=== PATIENT | female | born 1980 | race Hispanic/Latino ===

== ENCOUNTER 2016-12-26 17:53 | Inpatient (IN) | payer OTHER ==
[~2016-12-26] VITALS: Ht 154.9 cm; Wt 81.9 kg
[~2016-12-26 17:53] MED LIST: CHOL500011 PO; IBUP800T28 PO; [UNRECOGNIZED DRUG - CODE] PO
[2016-12-26 18:02] VITALS: BP 114/76; PULSE 124; RESP 16; O2SAT 96
--- NOTE | 2016-12-26 19:23 | DRSVH ---
PROCEDURE: X-RAY CHEST, TWO VIEWS ([id number]) INDICATIONS: FEVER, POSSIBLE SEPSIS TECHNIQUE: 2 views of the chest were acquired. COMPARISON: None. FINDINGS: Surgical changes and devices: None. Lungs and pleura: No pleural effusions or pneumothorax. Lungs are clear. Mediastinum: Mediastinal contours are normal. Heart size is normal. Bones and chest wall: No suspicious bony abnormalities. Soft tissues appear unremarkable. IMPRESSION: Mildly reduced inspiratory volume, no acute disease. Dictated by: Marshall Raymond M.D. on 12/26/2016 at 19:21 Approved by: Marshall Raymond M.D. on 12/26/2016 at 19:21
[2016-12-26 19:59] LABS: BASOPHILS % (AUTO) 0.2 % (0-3); EOSINOPHILS % (AUTO) 0.1 % (0-5)
[2016-12-26] MEDS ORDERED: Ondansetron 2 mg/mL 2 mL Inj IVPUSH ONE (20:00)
--- NOTE | 2016-12-26 20:04 | ED.REPORT ---
HPI-General Illness Date of Service Dec 26, 2016 ED Provider: Arben Jimenez MD Patient is a 36 year old female who presents to the ED complaining of abdominal pain onset 3 days ago. Associated symptoms include pain that radiates into her back, headache, fever, chills, nausea and a slight cough. She denies dysuria, neck stiffness, shortness of breath, rash, vomiting, diarrhea, abnormal vaginal discharge or history of sexually transmitted disease. The patient reports that she has tried using ibuprofen, which has helped some with her chills but has not resolved them. She denies contact with meningitis or recent travel. Patient reports that her daughter recently came back from [place] two weeks ago and was sick. The patient reports that she last drank two days ago and had four drinks. Nursing Notes Stated Complaint: ABD PAIN,CHILLS,BACK PAIN Chief Complaint: General Complaint Nursing Notes Reviewed: Yes Allergies: Coded Allergies: No Known Allergies (Verified , 12/26/16) Scheduled PRN Ibuprofen (Ibuprofen) 200 Mg Capsule 400 MG PO Q6H PRN PRN For Pain Sumatriptan (Imitrex) 25 Mg Tablet 50 MG PO ASDIRECTED PRN PRN For Headache General Time Seen by MD: 19:28 Chief Complaint Abdominal pain Hx Obtained From: Patient Arrived By: Walk-in Sudden in Onset?: Yes Onset Occurred: 3 days ago Symptom Duration: Since onset Location: : Abdomen: Back: Head Quality: Painful Severity: Current: Moderate Similar Sx Previous: No Past Medical History Past Medical History none reported Past Surgical History Reports: Ambulatory Status Independent Review of Systems Full Review of Systems Constitutional: Reports: Chills, Fever Respiratory: Reports: Non-productive cough, Denies: Shortness of breath GI: Reports: Abdominal pain, Nausea, Denies: Diarrhea, Vomiting Female: Denies: Dysuria, , Vaginal discharge Musculoskeletal: Reports: Back pain, Denies: Neck pain Skin: Denies Rash Neurologic: Reports: Headache Complete sys rev & neg: except as marked. Physical Exam Vital Signs Vital Signs Date Time Temp Pulse Resp B/P Pulse Ox O2 Delivery O2 Flow Rate FiO2 12/26/16 21:51 38.1 113 20 112/66 96 Room Air 12/26/16 18:02 37.3 124 16 114/76 96 Room Air Initial VS: Reviewed General/Constitutional: Awake, Alert Head / Eyes: Atraumatic, Normocephalic, PERRL, EOMI ENT: Atraumatic, Airway patent, Mucous membranes moist, Pharynx NL Neck: Atraumatic, Supple, Full range of motion Respiratory / Chest: Atraumatic, Breath sounds NL, Breath sounds = bilat, No respiratory distress Cardiovascular: Regular rhythm, Heart sounds NL, No gallop, No murmurs, No rubs Heart Rate / Rhythm: Positive: Tachycardia Abdomen: Atraumatic, Soft, No guarding, No rebound, No palpable mass diffuse mild lower quadrant and suprapubic tenderness tolerates firm palpation Back: Atraumatic no percussive flank tenderness Upper Extremities Upper Extremity / MS: Atraumatic, Full range of motion Lower Extremity / Pelvis / MS: Atraumatic, No swelling, Non-tender Skin: Atraumatic, Color NL, No rash, Warm, Dry Neurologic: Oriented X3, Speech NL Interpretation & Diagnostics Lab Results Interpretation Result Diagram: 12/28/16 0755 12/28/16 0755 Test 12/26/16 19:51 12/26/16 21:02 Hemoglobin A1c 6.1% (4.8-5.6) Lactic Acid Level 1.3mmol/L (0.4-2.0) Troponin T < 0.010ug/L (0.0-0.011) Human Chorionic Gonadotropin, Qual Negative (Negative) Urine Color Yellow (YELLOW) Urine Appearance Cloudy (CLEAR,HAZY) Urine pH 7.5 (5.0-8.0) Urine Specific [place] 1.010 (1.003-1.035) Urine Protein 30mg/dL (NEG,TRACE) Urine Glucose (UA) Negativemg/dL (NEGATIVE) Urine Ketones 15mg/dL (NEGATIVE) Urine Occult Blood Trace (NEGATIVE) Urine Nitrite Negative (NEGATIVE) Urine Bilirubin Negative (NEGATIVE) Urine Urobilinogen 2.0mg/dL (NORMAL) Urine Leukocyte Esterase Trace (NEGATIVE) Urine RBC 3-10/hpf (0-2) Urine WBC 11-50/hpf (0-5) Urine Epithelial Cells Moderate/hpf (NONE-MOD) Urine Crystals None seen (NONE SEEN) Urine Bacteria Many/hpf (NONE-FEW) Urine Hyaline Casts None/lpf (NONE) Urine Granular Casts None seen (NONE SEEN) Urine Waxy Casts None seen (NONE SEEN) Urine Red Blood Cell Casts None seen (NONE SEEN) Urine White Blood Cell Casts None seen (NONE SEEN) Urine Mucus None seen (None Seen) Urine Trichomonas None seen (NONE SEEN) Urine Yeast None (NONE SEEN) Urinalysis Comment None Urine Culture Reflexed Indicated ECG Interpretation ECG Interpretation: sinus tachycardia, 134bpm Interpreted by: ED physician X-Ray Chest Interpretation Chest Xray Interpretation: IMPRESSION: Mildly reduced inspiratory volume, no acute disease. Dictated by: Marshall Raymond M.D. on 12/26/2016 at 19:21 Approved by: Marshall Raymond M.D. on 12/26/2016 at 19:21 Interpretation / Wet Read by: Interpret - Radiologist CT Abd / Pelvis Interpretation IMPRESSION: Quite pronounced fatty infiltration throughout the liver, significantly changed in appearance from the comparison study from 11/11/14. 2 areas of focal pyelonephritis involving the renal cortex on the left, without urinary tract stone or urinary tract obstruction associated. Underlying urinary tract infection is presumed. Dictated by: Marshall Raymond M.D. on 12/26/2016 at 21:50 Approved by: Marshall Raymond M.D. on 12/26/2016 at 21:54 Interpretation / Wet Read by: Interpret - Radiologist Re-Eval/Medical Decision Med Decision/Clinical Course In summary, the patient is a generally healthy 36-year-old female who presents with fevers, chills, diffuse body aches and suprapubic/flank pain for the last several days. Upon arrival in the emergency department the patient is tachycardic and slightly diaphoretic. She is not in any apparent distress though she appears generally ill. Order list: 2L fluids, oral Tylenol, IV Zofran, IV Ceftriaxone Labs: CBC unremarkable, CMP unremarkable except for elevated transaminases with ALT of 163 and AST of 80 Urinalysis showed 11-50WBC, negative nitrites and many bacteria, consistent with UTI EKG showed sinus tachycardia with 134bpm, no ST segment elevation, no acute T wave abnormalities, no previous EKG for comparison Abdomen CT: Quite pronounced fatty infiltration throughout the liver, significantly changed in appearance from the comparison study from 11/11/14. 2 areas of focal pyelonephritis involving the renal cortex on the left, without urinary tract stone or urinary tract obstruction associated. Underlying urinary tract infection is presumed. Chest X-ray showed mildly reduced inspiratory volume, no acute disease. Pt presents with overall constellation of symptoms concerning for systemic infectious process. Urinalysis reveals urinary tract infection and CT scan of the abdomen and pelvis is consistent with suspected pyelonephritis. Patient meets SIRS criteria and was aggressively treated with IV fluids and IV antibiotics. Prior to initiating IV antibiotics 2 sets of blood cultures were obtained. The patient remained tachycardic though hemodynamically stable. The patient has been admitted to the hospitalist service for further management. In regards to the patient's elevated transaminases she admits to heavily drinking alcohol and her pattern of transaminase elevation is consistent with alcoholic etiology. Time of Eval: 22:11 Re-Evaluation/Progress Note: Discussed results and plan for admit. Patient understands and agrees to plan. All questions were addressed. Consultation : Referral / Consult Name: Vanessa Castellano DO Consulted With: Hospitalist Call Returned at: 22:17 Funds Development Director: Agrees with eval, Agrees with plan, Accepts admit Counseled Regarding: Diagnosis, Lab results, Need for admission Discharge & Departure Primary Impression: Pyelonephritis Additional Impressions: Tachycardia Sepsis Sepsis type: sepsis due to unspecified organism Qualified Code: A41.9 - Sepsis, unspecified organism Transaminitis Alcohol abuse Body aches Chills Disposition: ADMITTED TO HOSPITAL Discharge Condition All VS Reviewed: Yes Condition: Stable Referrals: Clif Rangel MD (PCP) Cathi Attestation Portions of this note were transcribed by Zoila Salamanca. I, Dr. Jimenez personally performed the history, physical exam and medical decision-making; I reviewed and confirmed the accuracy of the information in the transcribed note. Signed by: Cathi Parada, 12/26/16 copies to: Clif Rangel MD, Beck O MD Dec 26, 2016 20:04 Jahaira Salamanca Dec 26, 2016 20:06 None seen (None Seen) Urine Trichomonas None seen (NONE SEEN) Urine Yeast None (NONE SEEN) Urinalysis Comment None Urine Culture Reflexed Indicated ECG Interpretation ECG Interpretation: sinus tachycardia, 134bpm Interpreted by: ED physician X-Ray Chest Interpretation Chest Xray Interpretation: IMPRESSION: Mildly reduced inspiratory volume, no acute disease. Dictated by: Marshall Raymond M.D. on 12/26/2016 at 19:21 Approved by: Marshall Raymond M.D. on 12/26/2016 at 19:21 Interpretation / Wet Read by: Interpret - Radiologist CT Abd / Pelvis Interpretation IMPRESSION: Quite pronounced fatty infiltration throughout the liver, significantly changed in appearance from the comparison study from 11/11/14. 2 areas of focal pyelonephritis involving the renal cortex on the left, without urinary tract stone or urinary tract obstruction associated. Underlying urinary tract infection is presumed. Dictated by: Marshall Raymond M.D. on 12/26/2016 at 21:50 Approved by: Marshall Raymond M.D. on 12/26/2016 at 21:54 Interpretation / Wet Read by: Interpret - Radiologist Re-Eval/Medical Decision Med Decision/Clinical Course Order list: 2L fluids, oral Tylenol, IV Zofran, IV Ceftriaxone Labs: CBC unremarkable, CMP unremarkable except for elevated transaminases with ALT of 163 and AST of 80 Urinalysis showed 11-50WBC, negative nitrites and many bacteria, consistent with UTI EKG showed sinus tachycardia with 134bpm, no ST segment elevation, no acute T wave abnormalities, no previous EKG for comparison Abdomen CT: Quite pronounced fatty infiltration throughout the liver, significantly changed in appearance from the comparison study from 11/11/14. 2 areas of focal pyelonephritis involving the renal cortex on the left, without urinary tract stone or urinary tract obstruction associated. Underlying urinary tract infection is presumed. Chest X-ray showed mildly reduced inspiratory volume, no acute disease. Time of Eval: 22:11 Re-Evaluation/Progress Note: Discussed results and plan for admit. Patient understands and agrees to plan. All questions were addressed. Consultation : Referral / Consult Name: Vanessa Castellano DO Consulted With: Hospitalist Call Returned at: 22:17 Funds Development Director: Agrees with eval, Agrees with plan, Accepts admit Counseled Regarding: Diagnosis, Lab results, Need for admission Discharge & Departure Primary Impression: Pyelonephritis Additional Impression: Tachycardia Disposition: ADMITTED TO HOSPITAL Discharge Condition All VS Reviewed: Yes Condition: Stable Referrals: Clif Rangel MD (PCP) Cathi Attestation Portions of this note were transcribed by Zoila Salamanca. I, Dr. Jimenez personally performed the history, physical exam and medical decision-making; I reviewed and confirmed the accuracy of the information in the transcribed note. Signed by: Cathi Parada, 12/26/16 copies to: Clif Rangel MD, Beck O MD Dec 26, 2016 20:04 Jahaira Salamanca Dec 26, 2016 20:06
[2016-12-26 20:08] LABS: Mean Corpuscular Hemoglobin 32.5 pg (27.0-35.0); Mean Corpuscular Volume 95.8 fL (81-100); Platelet Count 95 bil/L (150-400)
[2016-12-26 20:23] LABS: Magnesium 1.8 mg/dL (1.6-2.6)
[2016-12-26 20:31] LABS: TROPONIN T < 0.010 ug/L (0.0-0.011)
[2016-12-26] MEDS: 0.9% Sodium Chloride 1,000 ML IV SCH ×2 (20:59→22:25)
[2016-12-26 21:14] LABS: APPEARANCE,URINE CLOUDY (CLEAR,HAZY); COLOR,URINE YELLOW (YELLOW); OCCULT BLOOD,URINE TRACE (NEGATIVE); PH,URINE 7.5 (5.0-8.0)
[2016-12-26 21:51] VITALS: BP 112/66; PULSE 113; RESP 20; O2SAT 96
--- NOTE | 2016-12-26 21:56 | DRSVH ---
PROCEDURE: CT ABDOMEN AND PELVIS WITH CONTRAST ([id number]) INDICATIONS: low abd pain TECHNIQUE: After the administration of intravenous contrast, 5 mm thick sections acquired from the diaphragm to the symphysis. 5 mm coronal and sagittal reformats were acquired. For radiation dose reduction, the following was used: automated exposure control, adjustment of mA and/or kV according to patient walter piedra. COMPARISON: [facility], CT, CT ABD PELVIS W CON, 11/11/2014, 9:53. FINDINGS: Image quality: Excellent. ABDOMEN: Lung bases: Lung bases are clear. Heart size is normal. Solid organs: Liver and spleen are normal in size and enhancement but there is prominent fatty infil tration throughout the liver.. Gallbladder appears free of inflammation or calcified gallstones. Bi liary system is non dilated. Pancreas enhances normally. No adrenal nodules. Kidneys demonstrate n ormal size and enhancement, without hydronephrosis. There is, however, evidence of focal pyelonephrit is involving the renal cortex on the left, both at the middle third of the cortex posterior laterally in its posterior aspect of the lower third cortex. These areas were previously normal CT scanning . Peritoneum and bowel: Bowel loops demonstrate normal wall thickness and caliber. No free fluid or a ir. Nodes and vessels: No retroperitoneal or mesenteric adenopathy by size criteria. Aorta and inferior vena cava are normal in size. Miscellaneous: No ventral hernias. PELVIS: Genitourinary: Bladder wall thickness is normal. Miscellaneous: No inguinal hernias or adenopathy. Bones: No suspicious bony lesions. No vertebral body compression fractures. IMPRESSION: Quite pronounced fatty infiltration throughout the liver, significantly changed in appea draian from the comparison study from 11/11/14. 2 areas of focal pyelonephritis involving the renal cortex on the left, without urinary tract stone o r urinary tract obstruction associated. Underlying urinary tract infection is presumed. Dictated by: Marshall Raymond M.D. on 12/26/2016 at 21:50 Approved by: Marshall Raymond M.D. on 12/26/2016 at 21:54
[2016-12-26] MEDS ORDERED: Ondansetron 2 mg/mL 2 mL Inj IVPUSH PRN (22:05)
[2016-12-26] MEDS ORDERED: Alum-Mag Hydrox-Simeth 30 mL Suspension PO PRN ×2 (22:05→22:30)
[2016-12-26] MEDS ORDERED: cefTRIAXone Inj 2,000 MG in Dextrose 5% Minibag Plus 50 ML IV ONE (22:05)
[2016-12-26] MEDS ORDERED: HYDROmorphone 1 mg/mL Inj IVPUSH ONE (22:10)
[2016-12-26] MEDS ORDERED: Polyethylene Glycol (PEG) 17 Gm Powder PO PRN (22:30)
[2016-12-26] MEDS ORDERED: IBUP200C PO (22:48)
[2016-12-26] MEDS ORDERED: IMI25 PO (22:48)
--- NOTE | 2016-12-26 22:49 | PCM.HPMED ---
Subjective Date of Service Dec 26, 2016 Primary Provider: Admitting Physician: Primary Care Physician: Clif Rangel MD Attending Physician: Admit Status: From the Emergency Department Chief Complaint: flank pain History of Present Illness: 36yoF with minimal past medical history admitted secondary to concerns for pyelonephritis. Patient states that about 3 days ago she began having suprapubic tenderness and left flank pain rated at 5-6/10. Despite taking ibuprofen her symptoms worsening until she decided to be evaluated at [facility] ED. Associated symptoms include chills, nausea, and low grade fever of 99F. While patient has rarely had a UTI, the last being 6 years ago, she does recall having dysuria with her last UTI and denies dysuria or urinary frequency at this time. CT scan while in the ED is consistent with pyelonephritis and UA with trace leukocyte esterase and many bacteria. WBC within normal limits. HR elevated 120-140s. Review of Systems: complete review of systems obtained. positive as per hpi otherwise negative. 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 Chest & Lungs: Clear to auscultation & percussion, No adventitious breath sounds, no crackles, no wheeze Cardiovascular: Normal S1, Normal S2, No Murmurs/Rubs/Gallops, tachy / reg Rhythm Pulses: Radial (present and equal), Dorsalis Pedi (present and equal) Abdomen: Soft,Tenderness in suprapubic region and left flank, + CVA tenderness, Non-distended, Normoactive bowel tones. Musculoskeletal: Unremarkable. Normal range of motion, no swollen or erythematous joints Extremities: No edema, no cyanosis, no clubbing. Skin: No rashes. Warm and dry, no erythematous areas Neurological: Grossly neurologically intact, Normal Speech, Sensation Intact Lymphatic: Lymph nodes Cervical and Axillary not palpable. Lab and Diagnostics Result Diagram: 12/26/16195012/26/161950 X-Rays, CTs and MRIs Patient Name: CORTES LANG MR#: [id number] [place] [facility] [place] Phys: Arben Jimenez MD Date of Service: 12/26/161955 PROCEDURE: CT ABDOMEN AND PELVIS WITH CONTRAST ([id number]) INDICATIONS: low abd pain TECHNIQUE: After the administration of intravenous contrast, 5 mm thick sections acquired from the diaphragm to the symphysis. 5 mm coronal and sagittal reformats were acquired. For radiation dose reduction, the following was used: automated exposure control, adjustment of mA and/or kV according to patient size. COMPARISON: [facility], CT, CT ABD PELVIS W CON, 11/11/2014, 9:53. FINDINGS: Image quality: Excellent. ABDOMEN: Lung bases: Lung bases are clear. Heart size is normal. Solid organs: Liver and spleen are normal in size and enhancement but there is prominent fatty infiltration throughout the liver.. Gallbladder appears free of inflammation or calcified gallstones. Biliary system is non dilated. Pancreas enhances normally. No adrenal nodules. Kidneys demonstrate normal size and enhancement, without hydronephrosis. There is, however, evidence of focal pyelonephritis involving the renal cortex on the left, both at the middle third of the cortex posterior laterally in its posterior aspect of the lower third cortex. These areas were previously normal CT scanning 11/11/14. Peritoneum and bowel: Bowel loops demonstrate normal wall thickness and caliber. No free fluid or air. Nodes and vessels: No retroperitoneal or mesenteric adenopathy by size criteria. Aorta and inferior vena cava are normal in size. Miscellaneous: No ventral hernias. PELVIS: Genitourinary: Bladder wall thickness is normal. Miscellaneous: No inguinal hernias or adenopathy. Bones: No suspicious bony lesions. No vertebral body compression fractures. IMPRESSION: Quite pronounced fatty infiltration throughout the liver, significantly changed in appearance from the comparison study from 11/11/14. 2 areas of focal pyelonephritis involving the renal cortex on the left, without urinary tract stone or urinary tract obstruction associated. Underlying urinary tract infection is presumed. Dictated by: Marshall Raymond M.D. on 12/26/2016 at 21:50 Approved by: Marshall Raymond M.D. on 12/26/2016 at 21:54 Patient Name: CORTES LANG MR#: [id number] [place] [facility] [place]ing Phys: CHOCO, VIANCA MCCALLUM Date of Service: 12/26/161823 PROCEDURE: X-RAY CHEST, TWO VIEWS ([id number]) INDICATIONS: FEVER, POSSIBLE SEPSIS TECHNIQUE: 2 views of the chest were acquired. COMPARISON: None. FINDINGS: Surgical changes and devices: None. Lungs and pleura: No pleural effusions or pneumothorax. Lungs are clear. Mediastinum: Mediastinal contours are normal. Heart size is normal. Bones and chest wall: No suspicious bony abnormalities. Soft tissues appear unremarkable. IMPRESSION: Mildly reduced inspiratory volume, no acute disease. Dictated by: Marshall Raymond M.D. on 12/26/2016 at 19:21 Approved by: Marshall Raymond M.D. on 12/26/2016 at 19:21 Assessment & Plan 36yoF with minimal past medical history admitted secondary to concerns for pyelonephritis. Patient is currently stable. Pyelonephritis, acute, POA -s/s and imaging (reviewed) consistent with pyelonephritis -ceftriaxone started in ED. Levofloxacin ordered for am -follow up blood cultures -oxycodone 5mg PO q4hr prn pain -mIVF ns 100cc/hr Sinus tachycardia, acute, POA -secondary to infection vs pain -treatment as above Elevated glucose, acute, POA -no history of diabetes -hgbA1c added on to admit labs and pending Elevated transaminase level, acute, POA -no history of liver dysfunction -fatty infiltrate seen on imaging, possible ETOH related or NAFLD -repeat with am labs -follow up closely as outpatient Pain Evaluation: Adequate Pain Control GI Prophylaxis: Not indicated VTE Prophylaxis: Sub-Q Heparin (Unfractionated) Resuscitation Status: CPR: Attempt Resuscitation Vanessa Castellano DO Dec 26, 2016 22:49
[2016-12-26 23:17] VITALS: BP 112/66; PULSE 113; RESP 20; O2SAT 96
--- NOTE | 2016-12-26 23:35 | NUR ---
Admit Patient arrived to floor at 2325. Patient A&Ox3. vitals stable. Patient up independent from bed to bathroom. Steady gait. Report given by Altagracia. Patient states pain is at a manageable level. Care continues.
[2016-12-26 23:40] VITALS: BP 100/62; PULSE 89; RESP 20; O2SAT 97
[2016-12-27] VITALS (10 sets, daily range): BP systolic 98–127; BP diastolic 35–85; PULSE 42–124; RESP 17–20; O2SAT 94–98
[2016-12-27] MEDS: 0.9% Sodium Chloride 1,000 ML IV SCH ×5 (00:49→23:10)
[2016-12-27] MEDS: Heparin 5,000 Unit/mL Inj SUBQ SCH ×3 (00:53→17:05)
[2016-12-27] MEDS: Ondansetron 2 mg/mL 2 mL Inj IVPUSH PRN ×2 (06:21→20:31)
--- NOTE | 2016-12-27 08:00 | NUR ---
HR This AM at 0505 patient had a recorded HR of 42, which is out of normal for this patient. Talked with beth tinsley, Maicol, and he went back to this time and saw a heart rate in the 70s and believes the 42 BPM reading to be inaccurate. Hospitalist aware.
[2016-12-27] MEDS: levoFLOXacin 750 mg Tablet PO SCH (08:10)
[2016-12-27 08:13] LABS: BASOPHILS % (AUTO) 0 % (0-3); EOSINOPHILS % (AUTO) 0.1 % (0-5); Mean Corpuscular Hemoglobin 32.6 pg (27.0-35.0); Mean Corpuscular Volume 95.9 fL (81-100); Platelet Count 74 bil/L (150-400)
[2016-12-27 08:43] LABS: Magnesium 1.6 mg/dL (1.6-2.6)
--- NOTE | 2016-12-27 11:31 | NUR ---
Fever/HR Patient reported chills, feeling warm, and pain. VS assessed and patient was tachycardic and febrile. Hospitalist paged and said we will treat the patient on sepsis protocol. IV fluids increased, additional dose of tylenol given, encouraged PO fluid intake. Checked patient's temp periodically and watching VS. Addendum: 12/27/16 at 1820 by JOESPH HWANG RN Patient became febrile once again and continued to be tachycardic throughout shift. Hospitalist aware. Continuing tylenol and assess patient's VS and pain levels.
[2016-12-27] MEDS ORDERED: Potassium Chloride 20 mEq SR Tablet PO ONE (12:40)
--- NOTE | 2016-12-27 12:43 | PCM.PNMED ---
Subjective Date of Service Dec 27, 2016 Subjective Continues to have fever. Temp 39.5. HR 124. BP 98/61. Exam Vital Signs Vital Sign - Last Date Time Temp Pulse Resp B/P Pulse Ox O2 Delivery O2 Flow Rate FiO2 12/27/16 12:28 37.4 108 18 98/66 95 Room Air Intake and Output 12/26/16 12/26/16 12/27/16 Cumulative From/Thru 14:59 22:59 06:59 12/26/16 18:02 - 12/27/16 03:43 Intake Total 1997 ml 1997 ml Balance 1997 ml 1997 ml IV Total 1997 ml 1997 ml Exam General: Alert, Oriented X3, Cooperative, No acute distress Eyes: PERRLA, Scleral Anicteric Mouth: Mouth Normal, Mucous Membranes Moist/[place] Neck: Supple, no Thyromegaly, trachea central. Chest & Lungs: Clear to auscultation & percussion, No adventitious breath sounds, no crackles, no wheeze Cardiovascular: Normal S1, Normal S2, No Murmurs/Rubs/Gallops, tachy / reg Rhythm Pulses: Radial (present and equal), Dorsalis Pedi (present and equal) Abdomen: Soft,Tenderness in suprapubic region and left flank, + CVA tenderness, Non-distended, Normoactive bowel tones. Musculoskeletal: Unremarkable. Normal range of motion, no swollen or erythematous joints Extremities: No edema, no cyanosis, no clubbing. Skin: No rashes. Warm and dry, no erythematous areas Neurological: Grossly neurologically intact, Normal Speech, Sensation Intact Lymphatic: Lymph nodes Cervical and Axillary not palpable. IVs and Medications Medications Reviewed: Medications were reviewed in detail Lab and Diagnostics Result Diagram: 12/27/1675412/27/16754 X-Rays, CTs and MRIs Patient Name: CORTES LANG MR#: [id number] Location: [facility] [place] Ordering Phys: Arben Jimenez MD Date of Service: 12/26/161955 PROCEDURE: CT ABDOMEN AND PELVIS WITH CONTRAST ([id number]) INDICATIONS: low abd pain TECHNIQUE: After the administration of intravenous contrast, 5 mm thick sections acquired from the diaphragm to the symphysis. 5 mm coronal and sagittal reformats were acquired. For radiation dose reduction, the following was used: automated exposure control, adjustment of mA and/or kV according to patient size. COMPARISON: [facility], CT, CT ABD PELVIS W CON, 11/11/2014, 9:53. FINDINGS: Image quality: Excellent. ABDOMEN: Lung bases: Lung bases are clear. Heart size is normal. Solid organs: Liver and spleen are normal in size and enhancement but there is prominent fatty infiltration throughout the liver.. Gallbladder appears free of inflammation or calcified gallstones. Biliary system is non dilated. Pancreas enhances normally. No adrenal nodules. Kidneys demonstrate normal size and enhancement, without hydronephrosis. There is, however, evidence of focal pyelonephritis involving the renal cortex on the left, both at the middle third of the cortex posterior laterally in its posterior aspect of the lower third cortex. These areas were previously normal CT scanning 11/11/14. Peritoneum and bowel: Bowel loops demonstrate normal wall thickness and caliber. No free fluid or air. Nodes and vessels: No retroperitoneal or mesenteric adenopathy by size criteria. Aorta and inferior vena cava are normal in size. Miscellaneous: No ventral hernias. PELVIS: Genitourinary: Bladder wall thickness is normal. Miscellaneous: No inguinal hernias or adenopathy. Bones: No suspicious bony lesions. No vertebral body compression fractures. IMPRESSION: Quite pronounced fatty infiltration throughout the liver, significantly changed in appearance from the comparison study from 11/11/14. 2 areas of focal pyelonephritis involving the renal cortex on the left, without urinary tract stone or urinary tract obstruction associated. Underlying urinary tract infection is presumed. Dictated by: Marshall Raymond M.D. on 12/26/2016 at 21:50 Approved by: Marshall Raymond M.D. on 12/26/2016 at 21:54 Patient Name: CORTES LANG MR#: [id number] Location: [facility] [place] Ordering Phys: VIANCA WILHELM MD Date of Service: 12/26/16 2992 PROCEDURE: X-RAY CHEST, TWO VIEWS ([id number]) INDICATIONS: FEVER, POSSIBLE SEPSIS TECHNIQUE: 2 views of the chest were acquired. COMPARISON: None. FINDINGS: Surgical changes and devices: None. Lungs and pleura: No pleural effusions or pneumothorax. Lungs are clear. Mediastinum: Mediastinal contours are normal. Heart size is normal. Bones and chest wall: No suspicious bony abnormalities. Soft tissues appear unremarkable. IMPRESSION: Mildly reduced inspiratory volume, no acute disease. Dictated by: Marshall Raymond M.D. on 12/26/2016 at 19:21 Approved by: Marshall Raymond M.D. on 12/26/2016 at 19:21 Assessment & Plan 36yoF with minimal past medical history admitted secondary to concerns for pyelonephritis. Patient is currently stable. # sepsis,acute,poa -SIRS met Temp 39.5. HR 124. BP 98/61. Acute hepatic dysfunction -Due to pyelonephritis # Pyelonephritis, acute, POA -s/s and imaging (reviewed) consistent with pyelonephritis -ceftriaxone given in ED. started Levofloxacin, continue with that - blood cultures pending. Urine culture growing GNRs -oxycodone 5mg PO q4hr prn pain -mIVF ns 100cc/hr # low TSH -Tsh borderline low 0.446 ( Nv 0.45-4.5) -Requested FT4 -Sinus tachycardia likely due to sepsis than thyroid state # Elevated glucose, acute, POA -no history of diabetes -hgbA1c added on to admit labs and pending # Elevated transaminase level, acute, POA -no history of liver dysfunction -fatty infiltrate seen on imaging, possible ETOH related or NAFLD -Due to sepsis and is improving Disposition: Changed inpatient from observation. 1-2 days GI Prophylaxis: Not indicated VTE Prophylaxis: Sub-Q Heparin (Unfractionated) Resuscitation Status: CPR: Attempt Resuscitation Wagner Melton MD Dec 27, 2016 12:43
--- NOTE | 2016-12-27 16:37 | NUR ---
Heparin/Plt. Patient's platelet count has decreased today compared to yesterday and is 74,000. Talked with pharmacy about protocols that could call for holding patient's SubQ Heparin dose. Talked with hospitalist as well about whether or not to hold patient's SubQ Heparin. Hospitalist is aware of platelet count change, is not concerned, and requests us to continue administering to the patient. Patient has no s/s of bleeding including bruising or bleeding at the patient's IV site but still continue to monitor for any changes.
[2016-12-28] VITALS (8 sets, daily range): BP systolic 105–128; BP diastolic 69–90; PULSE 63–117; RESP 16–18; O2SAT 95–98
[2016-12-28] MEDS: Heparin 5,000 Unit/mL Inj SUBQ SCH ×2 (00:47→08:30)
--- NOTE | 2016-12-28 03:37 | NUR ---
PAIN/FEVER; Oxycodone for abd to left flank area pain with relief. Tylenol for fever x2. Zofran for nausea/vomiting x1 with relief.
--- NOTE | 2016-12-28 04:29 | NUR ---
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
[2016-12-28] MEDS: 0.9% Sodium Chloride 1,000 ML IV SCH ×2 (04:42→14:39)
[2016-12-28 08:23] LABS: BASOPHILS % (AUTO) 0.1 % (0-3); EOSINOPHILS % (AUTO) 0.1 % (0-5); MONOCYTES % (AUTO) 10.3 % (4-12); Mean Corpuscular Hemoglobin 32.2 pg (27.0-35.0); Mean Corpuscular Volume 95.1 fL (81-100); NEUTROPHILS % (AUTO) 78.3 % (40-74); Platelet Count 68 bil/L (150-400)
[2016-12-28 09:00] LABS: Magnesium 1.7 mg/dL (1.6-2.6)
[2016-12-28] MEDS: levoFLOXacin 750 mg Tablet PO SCH (10:16)
--- NOTE | 2016-12-28 12:40 | PCM.PNMED ---
Subjective Date of Service Dec 28, 2016 Subjective continues to have fever but improving overall . Exam Vital Signs Vital Sign - Last Date Time Temp Pulse Resp B/P Pulse Ox O2 Delivery O2 Flow Rate FiO2 12/28/16 10:20 36.8 12/28/16 09:10 80 18 117/77 97 Room Air Intake and Output 12/27/16 12/27/16 12/28/16 Cumulative From/Thru 15:00 23:00 07:00 12/26/16 18:02 - 12/28/16 06:03 Intake Total 1347 ml 2546 ml 3350 ml 9241 ml Output Total 675 ml 2100 ml 1600 ml 4375 ml Balance 672 ml 446 ml 1750 ml 4866 ml Intake Oral 800 ml 1200 ml 1600 ml 3600 ml IV Total 547 ml 1346 ml 1750 ml 5641 ml Output Urine Total 575 ml 2100 ml 1400 ml 4075 ml Emesis 100 ml 200 ml 300 ml # Voids 3 3 # Bowel Movements 0 0 0 0 Exam General: Alert, Oriented X3, Cooperative, No acute distress Eyes: PERRLA, Scleral Anicteric Mouth: Mouth Normal, Mucous Membranes Moist/[place] Neck: Supple, no Thyromegaly, trachea central. Chest & Lungs: Clear to auscultation & percussion, No adventitious breath sounds, no crackles, no wheeze Cardiovascular: Normal S1, Normal S2, No Murmurs/Rubs/Gallops, tachy / reg Rhythm Pulses: Radial (present and equal), Dorsalis Pedi (present and equal) Abdomen: Soft,Tenderness in suprapubic region and left flank, + CVA tenderness, Non-distended, Normoactive bowel tones. Musculoskeletal: Unremarkable. Normal range of motion, no swollen or erythematous joints Extremities: No edema, no cyanosis, no clubbing. Skin: No rashes. Warm and dry, no erythematous areas Neurological: Grossly neurologically intact, Normal Speech, Sensation Intact Lymphatic: Lymph nodes Cervical and Axillary not palpable. IVs and Medications Medications Reviewed: Medications were reviewed in detail Lab and Diagnostics Result Diagram: 12/28/16 0755 12/28/16 0467 X-Rays, CTs and MRIs Patient Name: CORTES LANG MR#: [id number] Location: [facility] [place] Ordering Phys: Arben Jimenez MD Date of Service: 12/26/161955 PROCEDURE: CT ABDOMEN AND PELVIS WITH CONTRAST ([id number]) INDICATIONS: low abd pain TECHNIQUE: After the administration of intravenous contrast, 5 mm thick sections acquired from the diaphragm to the symphysis. 5 mm coronal and sagittal reformats were acquired. For radiation dose reduction, the following was used: automated exposure control, adjustment of mA and/or kV according to patient size. COMPARISON: [facility], CT, CT ABD PELVIS W CON, 11/11/2014, 9:53. FINDINGS: Image quality: Excellent. ABDOMEN: Lung bases: Lung bases are clear. Heart size is normal. Solid organs: Liver and spleen are normal in size and enhancement but there is prominent fatty infiltration throughout the liver.. Gallbladder appears free of inflammation or calcified gallstones. Biliary system is non dilated. Pancreas enhances normally. No adrenal nodules. Kidneys demonstrate normal size and enhancement, without hydronephrosis. There is, however, evidence of focal pyelonephritis involving the renal cortex on the left, both at the middle third of the cortex posterior laterally in its posterior aspect of the lower third cortex. These areas were previously normal CT scanning 11/11/14. Peritoneum and bowel: Bowel loops demonstrate normal wall thickness and caliber. No free fluid or air. Nodes and vessels: No retroperitoneal or mesenteric adenopathy by size criteria. Aorta and inferior vena cava are normal in size. Miscellaneous: No ventral hernias. PELVIS: Genitourinary: Bladder wall thickness is normal. Miscellaneous: No inguinal hernias or adenopathy. Bones: No suspicious bony lesions. No vertebral body compression fractures. IMPRESSION: Quite pronounced fatty infiltration throughout the liver, significantly changed in appearance from the comparison study from 11/11/14. 2 areas of focal pyelonephritis involving the renal cortex on the left, without urinary tract stone or urinary tract obstruction associated. Underlying urinary tract infection is presumed. Dictated by: Marshall Raymond M.D. on 12/26/2016 at 21:50 Approved by: Marshall Raymond M.D. on 12/26/2016 at 21:54 Patient Name: CORTES LANG MR#: [id number] Location: [facility] [place] Ordering Phys: CHOCO, VIANCA MCCALLUM Date of Service: 12/26/161823 PROCEDURE: X-RAY CHEST, TWO VIEWS ([id number]) INDICATIONS: FEVER, POSSIBLE SEPSIS TECHNIQUE: 2 views of the chest were acquired. COMPARISON: None. FINDINGS: Surgical changes and devices: None. Lungs and pleura: No pleural effusions or pneumothorax. Lungs are clear. Mediastinum: Mediastinal contours are normal. Heart size is normal. Bones and chest wall: No suspicious bony abnormalities. Soft tissues appear unremarkable. IMPRESSION: Mildly reduced inspiratory volume, no acute disease. Dictated by: Marshall Raymond M.D. on 12/26/2016 at 19:21 Approved by: Marshall Raymond M.D. on 12/26/2016 at 19:21 Assessment & Plan 36yoF with minimal past medical history admitted secondary to concerns for pyelonephritis. Patient is currently stable. # sepsis,acute,poa -SIRS met Temp 39.5. HR 124. BP 98/61. Acute hepatic dysfunction -Due to pyelonephritis # Pyelonephritis, acute, POA -s/s and imaging (reviewed) consistent with pyelonephritis -ceftriaxone given in ED. started Levofloxacin, continue with that - blood cultures x2 NGTD. Urine culture growing pansensitive E coli -oxycodone 5mg PO q4hr prn pain -mIVF ns 75cc/hr # low TSH -Tsh borderline low 0.446 ( Nv 0.45-4.5) -Requested FT4 -Sinus tachycardia likely due to sepsis than thyroid state # Prediabetes , acute, POA -no history of diabetes -hgbA1c 6.1 # Elevated transaminase level, acute, POA -no history of liver dysfunction -fatty infiltrate seen on imaging, possible ETOH related or NAFLD -Due to sepsis and is improving # thrombocytopenia -unclear etiology , probably due to sepsis. discontinued hep sc ppx . Disposition: Changed inpatient from observation. 1-2 days GI Prophylaxis: Not indicated VTE Prophylaxis: Sub-Q Heparin (Unfractionated) VTE Mechanical Devices: Intermittant Pneumatic CD Resuscitation Status: CPR: Attempt Resuscitation Wagner Melton MD Dec 28, 2016 12:40
--- NOTE | 2016-12-28 17:21 | NUR ---
Pain/Temp/GI Patient has been afebrile this entire shift. The patient also denies any nausea today and states that her pain has been tolerable and "feels much better than yesterday". She has been able to tolerate eating small amounts of meals and has good PO fluid intake. Addendum: 12/28/16 at 1942 by JOSEPH HWANG RN Patient became febrile later in the shift and was given PO tylenol. She requested motrin as she stated it helps with any fever she's had in the past. paged and order received for PO motrin.
[2016-12-28] MEDS: Ondansetron 2 mg/mL 2 mL Inj IVPUSH PRN (23:17)
--- NOTE | 2016-12-28 23:22 | NUR ---
EMESIS/PAIN: Pt. was medicated with 400 mg of Ibuprofen per her request c/o headache, did not want Tylenol. Pt. stated that she ate some fruit from home and had 300 ml emesis, the fruit made her sick to her stomach. Given IV Zofran 8 mg. States her H/A still no resolving after the Ibuprofen. Given ice cool bag for forehead and cool wash cloth. Will cont. to monitor.
[2016-12-29 00:40] VITALS: BP 116/81; PULSE 99; RESP 18; O2SAT 96
[2016-12-29] MEDS: 0.9% Sodium Chloride 1,000 ML IV SCH (03:10)
[2016-12-29 04:30] VITALS: PULSE 99
[2016-12-29 05:11] VITALS: BP 120/83; PULSE 84; RESP 16; O2SAT 98
[2016-12-29 06:26] VITALS: PULSE 94
[2016-12-29 07:54] VITALS: PULSE 99
[2016-12-29] MEDS: Ondansetron 2 mg/mL 2 mL Inj IVPUSH PRN (08:01)
[2016-12-29] MEDS: levoFLOXacin 750 mg Tablet PO SCH (08:01)
[2016-12-29 08:41] VITALS: BP 115/82; PULSE 96; RESP 17; O2SAT 98
--- NOTE | 2016-12-29 10:40 | NUR ---
Social Work: Screening/Discharge/Multidisciplinary Rounds D: EMR reviewed. Pt is a 36 y/o female admitted [place] - readmit score of 1 - for pyelonephritis per H&P. Pt's insurance is [employer]. PCP is Clif Rangel MD. Pt's NOK is spouse Hugo Davis. Pt lives at home with family in [place]. SW screened pt's EMR - pt does not screen in for full assessment. SW discussed pt in multidisciplinary rounds for potential discharge planning needs. MD confirmed pt has no discharge needs, no MD orders received. No SW needs identified based on screening. A: Pt who is independent at baseline. P: Pt anticipated to discharge home with spouse to transport today via POV. MD confirmed pt has no discharge needs, no MD orders received. No SW needs identified based on screening. GEM [place]
--- NOTE | 2016-12-29 12:20 | PCM.DIMED ---
Discharge Instructions Date of Service Dec 29, 2016 Dates of Hospitalization Dec 26, 2016 at 22:32 Discharge Diagnosis Discharge Diagnosis # sepsis,acute,poa -Due to pyelonephritis # Pyelonephritis, acute, POA # low TSH with normal FT4 # Prediabetes , acute, POA # Elevated transaminase level due to sepsis, acute, POA, improved # thrombocytopenia Diet Discharge Diet: Diabetic Activity Discharge Activity: Limited until seen by PCP Call your provider Call your provider for: Fever or Chills, Shortness of breath, Bleeding, Chest pain, Vomitting, Excessive diarrhea, Weakness (unilateral) Patient Instructions Patient Instructions # You were hospitalized due to sepsis due to pyelonephritis/kidney infection. Please take cifdinir for 5 more days. # You have prediabetes with HbA1c 6.1.You are at risk of developing diabetes in the future. losing weight ( ideally 5-10 % of body weight but losing any amount will help ) will lower the risk of getting diabetes in prediabetes. # You had low platelet count of unclear etiology . Probably related to sepsis due to kidney infection. Please ask your PCP to check platelets and liver function test in 1-2 weeks.latest platelet count 68,000 Follow-up Provider: Clif Rangel MD Follow-up with PCP in: 1 week Wagner Melton MD Dec 29, 2016 12:20
[2016-12-29] MEDS ORDERED: CEFD300C3 PO (12:21)
--- NOTE | 2016-12-29 13:28 | NUR ---
discharged home with family. She has Rx for antibiotic, will have f/u appt with PCP for kidney infection and also to watch her prediabetes. She says she knows what a diabetic diet is because her brother is diabetic. She is eating well, ambulating, taking fluids, good pain control with Ibuprofen, no fever at this time
--- NOTE | 2016-12-29 17:01 | PCM.DC.MED ---
Discharge Summary Date of Service Dec 29, 2016 Dates of Hospitalization Date of Hospital Admission Dec 26, 2016 at 22:32 Date of Discharge: Dec 29, 2016 Providers: Admitting Physician: Vanessa Castellano DO Primary Care Physician: Clif Rangel MD Attending Physician: Wagner Lopez MD Diagnosis at Time of Discharge Diagnosis at Time of Discharge # sepsis,acute,poa -Due to pyelonephritis # Pyelonephritis, acute, POA # low TSH with normal FT4 # Prediabetes , acute, POA # Elevated transaminase level due to sepsis, acute, POA, improved # thrombocytopenia Procedures XRay, CTs & MRIs Patient Name: CORTES LANG MR#: [id number] [place] [facility] [place]ing Phys: Arben Jimenez MD Date of Service: 12/26/161955 PROCEDURE: CT ABDOMEN AND PELVIS WITH CONTRAST ([id number]) INDICATIONS: low abd pain TECHNIQUE: After the administration of intravenous contrast, 5 mm thick sections acquired from the diaphragm to the symphysis. 5 mm coronal and sagittal reformats were acquired. For radiation dose reduction, the following was used: automated exposure control, adjustment of mA and/or kV according to patient size. COMPARISON: [facility], CT, CT ABD PELVIS W CON, 11/11/2014, 9:53. FINDINGS: Image quality: Excellent. ABDOMEN: Lung bases: Lung bases are clear. Heart size is normal. Solid organs: Liver and spleen are normal in size and enhancement but there is prominent fatty infiltration throughout the liver.. Gallbladder appears free of inflammation or calcified gallstones. Biliary system is non dilated. Pancreas enhances normally. No adrenal nodules. Kidneys demonstrate normal size and enhancement, without hydronephrosis. There is, however, evidence of focal pyelonephritis involving the renal cortex on the left, both at the middle third of the cortex posterior laterally in its posterior aspect of the lower third cortex. These areas were previously normal CT scanning 11/11/14. Peritoneum and bowel: Bowel loops demonstrate normal wall thickness and caliber. No free fluid or air. Nodes and vessels: No retroperitoneal or mesenteric adenopathy by size criteria. Aorta and inferior vena cava are normal in size. Miscellaneous: No ventral hernias. PELVIS: Genitourinary: Bladder wall thickness is normal. Miscellaneous: No inguinal hernias or adenopathy. Bones: No suspicious bony lesions. No vertebral body compression fractures. IMPRESSION: Quite pronounced fatty infiltration throughout the liver, significantly changed in appearance from the comparison study from 11/11/14. 2 areas of focal pyelonephritis involving the renal cortex on the left, without urinary tract stone or urinary tract obstruction associated. Underlying urinary tract infection is presumed. Dictated by: Marshall Raymond M.D. on 12/26/2016 at 21:50 Approved by: Marshall Raymond M.D. on 12/26/2016 at 21:54 Patient Name: CORTES LANG MR#: [id number] [place] [facility] [place] Ordering Phys: CHOCO, VIANCA MCCALLUM Date of Service: 12/26/161823 PROCEDURE: X-RAY CHEST, TWO VIEWS ([id number]) INDICATIONS: FEVER, POSSIBLE SEPSIS TECHNIQUE: 2 views of the chest were acquired. COMPARISON: None. FINDINGS: Surgical changes and devices: None. Lungs and pleura: No pleural effusions or pneumothorax. Lungs are clear. Mediastinum: Mediastinal contours are normal. Heart size is normal. Bones and chest wall: No suspicious bony abnormalities. Soft tissues appear unremarkable. IMPRESSION: Mildly reduced inspiratory volume, no acute disease. Dictated by: Marshall Raymond M.D. on 12/26/2016 at 19:21 Approved by: Marshall Raymond M.D. on 12/26/2016 at 19:21 Brief History per HPI 36yoF with minimal past medical history admitted secondary to concerns for pyelonephritis. Patient states that about 3 days ago she began having suprapubic tenderness and left flank pain rated at 5-6/10. Despite taking ibuprofen her symptoms worsening until she decided to be evaluated at [facility]. Associated symptoms include chills, nausea, and low grade fever of 99F. While patient has rarely had a UTI, the last being 6 years ago, she does recall having dysuria with her last UTI and denies dysuria or urinary frequency at this time. CT scan while in the ED is consistent with pyelonephritis and UA with trace leukocyte esterase and many bacteria. WBC within normal limits. HR elevated 120-140s. Hospital Course 36yoF with minimal past medical history admitted secondary to concerns for pyelonephritis. Patient is currently stable. # sepsis,acute,poa -SIRS met Temp 39.5. HR 124. BP 98/61. Acute hepatic dysfunction -Due to pyelonephritis # Pyelonephritis, acute, POA -s/s and imaging (reviewed) consistent with pyelonephritis -ceftriaxone given in ED. treated with Levofloxacin, - blood cultures x2 NGTD. Urine culture growing pansensitive E coli .discharged on cefdinir for 5 more days -afebrile for 24 hrs,overall feeling better # low TSH -Tsh borderline low 0.446 ( Nv 0.45-4.5) - FT4 normal -advised to get repeat TFT in 4-6 weeks # Prediabetes , acute, POA,new diagnosis -no history of diabetes -hgbA1c 6.1 # Elevated transaminase level, acute, POA -no history of liver dysfunction -fatty infiltrate seen on imaging, possible ETOH related or NAFLD -Due to sepsis and is improving # thrombocytopenia -unclear etiology , probably due to sepsis. discontinued hep sc ppx . -recomend to check cbc in 1-2 weeks and get work up if persists Disposition: discharged home Exam Vital Signs (Last) Date Time Temp Pulse Resp B/P Pulse Ox O2 Delivery O2 Flow Rate FiO2 12/29/16 08:41 37.5 96 17 115/82 98 Room Air Exam General: Alert, Oriented X3, Cooperative, No acute distress Eyes: PERRLA, Scleral Anicteric Mouth: Mouth Normal, Mucous Membranes Moist/[place] Neck: Supple, no Thyromegaly, trachea central. Chest & Lungs: Clear to auscultation & percussion, No adventitious breath sounds, no crackles, no wheeze Cardiovascular: Normal S1, Normal S2, No Murmurs/Rubs/Gallops, tachy / reg Rhythm Pulses: Radial (present and equal), Dorsalis Pedi (present and equal) Abdomen: Soft,Tenderness in suprapubic region and left flank, + CVA tenderness, Non-distended, Normoactive bowel tones. Musculoskeletal: Unremarkable. Normal range of motion, no swollen or erythematous joints Extremities: No edema, no cyanosis, no clubbing. Skin: No rashes. Warm and dry, no erythematous areas Neurological: Grossly neurologically intact, Normal Speech, Sensation Intact Lymphatic: Lymph nodes Cervical and Axillary not palpable. Test 12/26/16 19:51 12/26/16 21:02 12/27/16 07:55 12/28/16 07:55 Hemoglobin A1c 6.1% (4.8-5.6) Lactic Acid Level 1.3mmol/L (0.4-2.0) Troponin T < 0.010ug/L (0.0-0.011) Human Chorionic Gonadotropin, Qual Negative (Negative) Urine Color Yellow (YELLOW) Urine Appearance Cloudy (CLEAR,HAZY) Urine pH 7.5 (5.0-8.0) Urine Specific [place] 1.010 (1.003-1.035) Urine Protein 30mg/dL (NEG,TRACE) Urine Glucose (UA) Negativemg/dL (NEGATIVE) Urine Ketones 15mg/dL (NEGATIVE) Urine Occult Blood Trace (NEGATIVE) Urine Nitrite Negative (NEGATIVE) Urine Bilirubin Negative (NEGATIVE) Urine Urobilinogen 2.0mg/dL (NORMAL) Urine Leukocyte Esterase Trace (NEGATIVE) Urine RBC 3-10/hpf (0-2) Urine WBC 11-50/hpf (0-5) Urine Epithelial Cells Moderate/hpf (NONE-MOD) Urine Crystals None seen (NONE SEEN) Urine Bacteria Many/hpf (NONE-FEW) Urine Hyaline Casts None/lpf (NONE) Urine Granular Casts None seen (NONE SEEN) Urine Waxy Casts None seen (NONE SEEN) Urine Red Blood Cell Casts None seen (NONE SEEN) Urine White Blood Cell Casts None seen (NONE SEEN) Urine Mucus None seen (None Seen) Urine Trichomonas None seen (NONE SEEN) Urine Yeast None (NONE SEEN) Urinalysis Comment None Urine Culture Reflexed Indicated Thyroid Stimulating Hormone (TSH) 0.446uIU/mL (0.450-4.500) Free Thyroxine 1.24ng/dL (0.82-1.77) White Blood Count 11.7th/mm3 (3.8-10.1) Red Blood Count 3.69mil/mm3 (3.90-5.20) Hemoglobin 11.9g/dL (12.0-15.6) Hematocrit 35.1% (35.0-46.0) Mean Corpuscular Volume 95.1fL (81-100) Mean Corpuscular Hemoglobin 32.2pg (27.0-35.0) Mean Corpuscular Hemoglobin Concent 33.9% (32.0-37.0) Red Cell Distribution Width 12.3% (12.3-15.4) Platelet Count 68bil/L (150-400) Neutrophils (%) (Auto) 78.3% (40-74) Lymphocytes (%) (Auto) 10.9% (14-46) Monocytes (%) (Auto) 10.3% (4-12) Eosinophils (%) (Auto) 0.1% (0-5) Basophils (%) (Auto) 0.1% (0-3) Sodium Level 135mEq/L (134-144) Potassium Level 3.5mEq/L (3.5-5.2) Chloride Level 102mEq/L (97-108) Carbon Dioxide Level 20mmol/L (18-29) Blood Urea Nitrogen 4mg/dL (6-20) Creatinine 0.59mg/dL (0.57-1.00) Estimat Glomerular Filtration Rate 167mL/min (>59) Glucose Level 114mg/dL (60-99) Calcium Level 7.9mg/dL (8.5-10.1) Magnesium Level 1.7mg/dL (1.6-2.6) Total Bilirubin 0.8mg/dL (0.0-1.2) Aspartate Amino Transf (AST/SGOT) 32U/L (0-50) Alanine Aminotransferase (ALT/SGPT) 76U/L (0-32) Alkaline Phosphatase 72U/L (25-150) Total Protein 5.6g/dL (6.4-8.4) Albumin 2.9g/dL (3.4-5.0) Microbiology Results Microbiology REINALDO CULT URINE Final 12/28/16-0805 Organism 1 ESCHERICHIA COLI U COLONY COUNT/QUANTITY >100,000 CFU/ml Cefazolin-predicts results for the oral agents, cefaclor,cefdinir, cefpodoximen, cefprozil, cefuroximne axetil, cephalexin and loracarbed when used for therapy of uncomplicated UTI's due to E. coli, K. pneumoniae, and Proteus mirabilis. Cefpodoxime, cefdinir and cefuroxime axetil may be tested individually because some isolates may be susceptible to these agents while testing resistant to cefazolin. (CLSI K225-S44 pg 53) 1. ESCHERICHIA COLI M.I.C Interp --------- ------ * AMOXICILLIN/CLAVULATE <=2 S * AMPICILLIN <=2 S * CEFAZOLIN (CEPHALOSPORIN) UTI 4 S * CEFEPIME <=1 S * CEFTRIAXONE <=1 S * CEFUROXIME SODIUM 4 S * CIPROFLOXACIN <=0.25 S * ERTAPENEM <=0.5 S * GENTAMICIN <=1 S * IMIPENEM <=1 S * LEVOFLOXACIN <=0.12 S * NITROFURANTOIN <=16 S * TETRACYCLINE <=1 S * TOBRAMYCIN <=1 S * TRIMETHOPRIM/SULFAMETHOXAZOLE <=20 S Discharge Medications Discharge Medications Cefdinir (Cefdinir) 300 Mg Capsule 300 MG PO BID Prescribed by: WAGNER LOPEZ MD As needed Ibuprofen (Ibuprofen) 200 Mg Capsule 400 MG PO Q6H PRN PRN For Pain (Reported) Sumatriptan (Imitrex) 25 Mg Tablet 50 MG PO ASDIRECTED PRN PRN For Headache ( Reported) Followup Plan Disposition: home Discharge Diet: Diabetic Discharge Activity: Limited until seen by PCP Patient Instructions # You were hospitalized due to sepsis due to pyelonephritis/kidney infection. Please take cifdinir for 5 more days. # You have prediabetes with HbA1c 6.1.You are at risk of developing diabetes in the future. losing weight ( ideally 5-10 % of body weight but losing any amount will help ) will lower the risk of getting diabetes in prediabetes. # You had low platelet count of unclear etiology . Probably related to sepsis due to kidney infection. Please ask your PCP to check platelets and liver function test in 1-2 weeks.latest platelet count 68,000 Follow-up Provider: Clif Rangel MD Follow-up with PCP in: 1 week Time spent 35 minutes corrdinating discharge and answering questions copies to: Clif Rangel MD, Melaku MD Dec 29, 2016 17:01
== END 2016-12-29 13:28 | disposition home or self-care (01) | DRG 872 ==
LOC: SED 17:53 → OSC 22:32 → OBSVTOIN 22:32 → INTOOBSV 22:32 → OSC 23:18
PROVIDERS: ADMIT Internal Medicine; ATTEND Internal Medicine
DX: A41.9 Sepsis, unspecified organism (principal); D69.6 Thrombocytopenia, unspecified; N10 Acute pyelonephritis; B96.20 Unspecified Escherichia coli [E. coli] as the cause of diseases classified elsewhere; F10.10 Alcohol abuse, uncomplicated; R73.03 Prediabetes; R79.89 Other specified abnormal findings of blood chemistry